=== PATIENT | male | born 1980 | race Caucasian/White ===

== ENCOUNTER 2021-11-22 16:54 | Emergency (ER) | payer OTHER, SELFPAY ==
[2021-11-22 17:05] VITALS: BP 148/84; PULSE 60; RESP 18; TEMP 36.1; O2SAT 98; BMI 27.8
[2021-11-22 17:35] LABS: COVID19 -Nasal RAPID Negative (Negative)
[2021-11-22] MEDS: MECLIZINE HCL 12.5 MG TABLET 25 MG PO (17:41)
--- NOTE | 2021-11-22 17:44 | ED.DIZZY ---
HPI - Dizziness <Yong Egan PA-C - Last Filed: 11/22/21 19:09> General Chief Complaint: Dizziness Stated Complaint: Nausea,Dizziness,Clogged Ears Time Seen by Provider: 11/22/21 17:05 Source: patient Mode of arrival: Ambulatory History of Present Illness HPI Narrative: Patient is a 40-year-old male presenting to the emergency department today for an evaluation dizziness. It patient states that he is experience sensations of ear congestion and a ?whooshing sensation? in his ears for the past month. He states he did begin to experience intermittent episodes of dizziness on Thursday, noting that the dizziness worsened within the last hour. He states that he experienced episodes of nausea with 1 episode of nonbloody nonbilious vomiting today. Patient denies fever, chills, chest pain, cough, shortness of breath, diarrhea, abdominal pain, dysuria, hematuria, diaphoresis, pain in the upper extremities, jaw pain, changes in vision, sore throat, or any other concerning symptoms. No further concerns were voiced at this time. Related Data Allergies Allergy/AdvReac Type Severity Reaction Status Date / Time No Known Drug Allergies Allergy Verified 11/22/21 17:10 Review of Systems <Yong Egan PA-C - Last Filed: 11/22/21 19:09> Constitutional Constitutional: Denies chills, Denies fatigue, Denies fever(s), Denies frequent falls, Denies lethargy and Denies weakness Eyes Eyes: Denies loss of vision ENT Ears, Nose, Mouth, and Throat: Denies change in voice, Reports dizziness, Denies neck pain, Denies sore throat, Denies throat swelling and Reports other (Ear fullness) Cardiovascular Cardiovascular: Denies chest pain, Denies irregular heart rhythm, Denies lightheadedness, Denies palpitations, Denies dyspnea, Denies dyspnea on exertion and Denies orthopnea Respiratory Respiratory: Denies cough, Denies dyspnea, Denies dyspnea on exertion and Denies wheezing Gastrointestinal Gastrointestinal: Denies abdominal pain, Denies change in bowel habits, Denies diarrhea, Denies loose stools, Reports nausea and Reports vomiting Genitourinary Genitourinary: Denies hematuria, Denies flank pain, Denies urinary incontinence and Denies urinary urgency Musculoskeletal Musculoskeletal: Denies back pain, Denies muscle weakness, Denies neck pain, Denies numbness and Denies tingling Integumentary/Breasts Skin/Breast: Denies pruritus, Denies erythema, Denies rash and Denies wounds Neurologic Neurologic: Denies behavioral changes, Denies confusion, Reports dizziness, Denies frequent falls, Denies loss of vision, Denies numbness, Denies tingling and Denies weakness Psychiatric Psychiatric: Denies behavioral changes and Denies confusion Endocrine Endocrine: Denies fatigue and Denies palpitations Allergic/Immunologic Allergic/Immunologic: Denies throat swelling and Denies wheezing Patient History <Yong Egan PA-C - Last Filed: 11/22/21 19:09> Social History Smoking Status: Former smoker Smoking Status: Former smoker alcohol intake frequency: 0-2 drinks per day Substance Use Type: does not use Exam <Yong Egan PA-C - Last Filed: 11/22/21 19:09> Narrative Exam Narrative: GENERAL: 40 year old patient appears stated age. Well-developed patient, in mild distress. HEAD: Atraumatic. Normocephalic. EYES: Pupils equal round and reactive. Extraocular motions intact. No scleral icterus. No injection or drainage. ENT: Nose without bleeding, purulent drainage. Throat without erythema, tonsillar hypertrophy or exudate. Airway patent. Tympanic membranes are nonerythematous bilaterally and are free of swelling. Serous fluid noted behind the tympanic membranes bilaterally. NECK: Trachea midline. Non tender CARDIOVASCULAR: Regular rate and rhythm without murmurs, gallops, or rubs. RESPIRATORY: Clear to auscultation. Breath sounds equal bilaterally. No wheezes, rales, or rhonchi. GASTROINTESTINAL: Abdomen soft, non-tender, nondistended. EXTREMITIES: No edema or joint tenderness. BACK: Nontender without deformity or crepitance. No flank tenderness. NEURO: AOx3. SKIN: No rash or erythema of visible areas Initial Vital Signs Initial Vital Signs: Vital Signs Temperature 97.0 F L 11/22/21 17:05 Pulse Rate 60 11/22/21 17:05 Respiratory Rate 18 11/22/21 17:05 Blood Pressure 148/84 H 11/22/21 17:05 Pulse Oximetry 98 11/22/21 17:05 <Cornell Ham DO - Last Filed: 11/23/21 07:28> Initial Vital Signs Initial Vital Signs: Vital Signs Temperature 97.0 F L 11/22/21 17:05 Pulse Rate 60 11/22/21 17:05 Respiratory Rate 18 11/22/21 17:05 Blood Pressure 148/84 H 11/22/21 17:05 Pulse Oximetry 98 11/22/21 17:05 Course <Yong Egan PA-C - Last Filed: 11/22/21 19:09> Course Course Narrative: EKG ordered. Zofran and meclizine administered. Orders Ordered: Discontinued Medications Meclizine HCl (Meclizine Hcl 12.5 Mg Tablet) 25 mg PO NOW ONE Stop: 11/22/21 17:37 Last Admin: 11/22/21 17:41 Dose: 25 mg Documented by: ABBE Ondansetron HCl (Ondansetron 8 Mg Tablet) 4 mg PO NOW ONE Stop: 11/22/21 17:37 Last Admin: 11/22/21 17:51 Dose: Not Given Documented by: ABBE Ondansetron HCl (Ondansetron 4 Mg Odt) 4 mg PO NOW ONE Stop: 11/22/21 17:46 Last Admin: 11/22/21 17:51 Dose: Not Given Documented by: ABBE Ondansetron HCl (Ondansetron 4 Mg Odt) 4 mg SL NOW ONE Stop: 11/22/21 17:46 Last Admin: 11/22/21 17:46 Dose: 4 mg Documented by: ABBE Vital Signs Vital signs: Vital Signs - 8 hr 11/22/21 17:05 Temperature 97.0 F L Pulse Rate 60 Respiratory Rate 18 Blood Pressure 148/84 H Pulse Oximetry 98 <Cornell Ham DO - Last Filed: 11/23/21 07:28> Orders Ordered: Discontinued Medications Meclizine HCl (Meclizine Hcl 12.5 Mg Tablet) 25 mg PO NOW ONE Stop: 11/22/21 17:37 Last Admin: 11/22/21 17:41 Dose: 25 mg Documented by: ABBE Ondansetron HCl (Ondansetron 8 Mg Tablet) 4 mg PO NOW ONE Stop: 11/22/21 17:37 Last Admin: 11/22/21 17:51 Dose: Not Given Documented by: ABBE Ondansetron HCl (Ondansetron 4 Mg Odt) 4 mg PO NOW ONE Stop: 11/22/21 17:46 Last Admin: 11/22/21 17:51 Dose: Not Given Documented by: ABBE Ondansetron HCl (Ondansetron 4 Mg Odt) 4 mg SL NOW ONE Stop: 11/22/21 17:46 Last Admin: 11/22/21 17:46 Dose: 4 mg Documented by: ABBE Vital Signs Vital signs: Vital Signs - 8 hr 11/22/21 17:05 Temperature 97.0 F L Pulse Rate 60 Respiratory Rate 18 Blood Pressure 148/84 H Pulse Oximetry 98 MDM - Dizziness <Yong Egan PA-C - Last Filed: 11/22/21 19:09> Lab Data Labs: Lab Results 11/22/21 Range/Units 17:01 SARS-CoV-2 (PCR) Negative (Negative) ECG Data Interpretation: Ventricular rate of 59 beats per minute, MN interval of 164 ms, sinus bradycardia but otherwise normal EKG. MDM Narrative Medical decision making narrative: To consider benign paroxysmal positional vertigo versus Meniere's disease verses acute otitis media versus otitis externa versus is cerumen impaction versus serous otitis media versus viral upper respiratory infection at all. Overall physical examination and history are reassuring. Discussed physical exam findings with patient informed him that it does appear he has clear fluid behind the ears which would explain the symptoms he has been experiencing. I advised the patient to take a daily Claritin to help alleviate his symptoms and a Sudafed at night to help to alleviate any congestion. Patient expresses understanding and agrees to plan. Inform the patient that I would be providing him a prescription for meclizine and Zofran. Patient states he like to be discharged home at this time. Strict return precautions were discussed with the patient prior to discharge. <Cornell Ham DO - Last Filed: 11/23/21 07:28> Lab Data Labs: Lab Results 11/22/21 Range/Units 17:01 SARS-CoV-2 (PCR) Negative (Negative) Discharge Plan Departure Patient Disposition: Home Clinical Impression: Acute serous otitis media, Vertigo Instructions: DI for Vertigo Activity Restrictions/Additional Instructions: *You have been diagnosed with acute serous otitis media, vertigo *What to do: *Please continue to take your regular medications as directed. [X] New medication prescriptions sent to your pharmacy: [facility] [ ] New medication written as a paper prescription [ ] No new medications given I recommend taking a daily Claritin to help alleviate the fullness that your experiencing in your years. Additionally, he can take a Sudafed at night to further improve the congestion. I have prescribed you medications to help improve your dizziness and nausea. Do not hesitate to return to the emergency department if you experience worsening dizziness, intractable vomiting, numbness or tingling in the extremities, chest pain, shortness of breath, or any other concerning symptoms. *Please follow up with your primary care provider in 2-3 days, call for an appointment. Let them know you were seen in the Emergency Department and that we ask that you be seen in follow up. We will electronically transmit a record of today's note if your PCP is in our system *If you do not have a primary care provider please contact the [facility] Resource line at [phone]. They will ask some questions about your medical history and help get you set up with a doctor in the community. *Return to Emergency Department if you should have any new, worsening or concerning symptoms, such as fever greater than 101 F, shaking chills, worsening pain, persistent vomiting or other bothersome symptoms. <Cornell Ham, DO - Last Filed: 11/23/21 07:28> [facility] Dr Ham Co-Sign Statement: I was available for consultation during this patient's emergency department visit. This chart is signed by myself for administrative purposes only. I did not have direct contact with this patient during this visit. They were seen independently by the APC.
[2021-11-22] MEDS: ONDANSETRON 4 MG ODT SL (17:46)
== END 2021-11-22 18:00 | disposition home or self-care (01) ==
PROVIDERS: Emergency Provider Physician Assistant
DX: H65.03 Acute serous otitis media, bilateral (principal); R42 Dizziness and giddiness; R11.2 Nausea with vomiting, unspecified; R00.1 Bradycardia, unspecified; Z20.822 Contact with and (suspected) exposure to COVID-19; Z87.891 Personal history of nicotine dependence
CPT/HCPCS: 87635; 93005; 93010; 99283; C9803

== ENCOUNTER 2023-11-01 16:50 | Emergency (ER) | payer OTHER, SELFPAY ==
[2023-11-01] VITALS (12 sets, daily range): BP systolic 142–179; BP diastolic 91–113; PULSE 62–96; RESP 12–27; O2SAT 92–100; BMI 28.5
--- NOTE | 2023-11-01 16:58 | ED.FALL ---
HPI - Fall General Chief Complaint: Trauma Stated Complaint: fell from roof Time Seen by Provider: 11/01/23 16:52 History of Present Illness HPI Narrative: Patient arrives for modified trauma. Brought in by ambulance from home. He was working on his roof and slipped as he was trying to get down. Fell down 10 ft onto his feet and then onto his right side. Denies any loss of consciousness. Denies any head or neck or spine pain. Patient arrives boarded and collared. Spinal precautions continued. Patient was safely log rolled off of the board as there was no no no midline tenderness or step-off of the cervical thoracic or lumbar spine. No skin injury seen. Denies any numbness or tingling or weakness to the arms or legs. No saddle paresthesia. No bowel or bladder incontinence. Related Data Allergies Allergy/AdvReac Type Severity Reaction Status Date / Time No Known Drug Allergies Allergy Verified 11/22/21 17:10 Review of Systems Review of Systems Narrative: GENERAL: negative chills, fatigue, malaise, fever, sweats. HEENT: negative sinus pain, ear pain, sore throat RESPIRATORY: negative dyspnea, cough CARDIOVASCULAR: negative chest pain, palpitations GASTROINTESTINAL: negative nausea, vomiting, abdominal pain : negative dysuria, frequency, hematuria MUSCULOSKELETAL: Positive muscle or bony pain SKIN: negative rash, skin lesions NEUROLOGIC: negative weakness, numbness ROS Unobtainable: All systems reviewed & are unremarkable except as noted in HPI and below Patient History Social History Smoking Status: Former smoker Smoking Status: Former smoker alcohol intake frequency: 0-2 drinks per day Substance Use Type: does not use Exam Narrative Exam Narrative: GENERAL: in no distress, not toxic not dyspneic HEAD: Normocephalic. Nontender face scalp and skull. EYES: Pupils equal round ENT: Mucous membranes moist. NECK: Trachea midline. No midline tenderness or step-off the cervical thoracic or lumbar spine, spinal precautions done. Patient safely log rolled. CARDIOVASCULAR: Regular rate and rhythm RESPIRATORY: Clear to auscultation. Breath sounds equal bilaterally. No wheezes, rales, or rhonchi. GASTROINTESTINAL: Abdomen soft, non-tender EXTREMITIES: No gross deformities. No shortening or rotation of the lower extremities. Examination right upper extremity edema swelling to the right elbow at the olecranon. Holds in hand is warm soft adames-pink strong radial pulse and assisted living assistant and light touch intact to fingers and thumb.. Nontender bilateral feet and heels Able to lift and bend at left hip and knee but does have right groin pain. Painful when attempting to raise the right leg. Pain at the right groin as well. BACK: No flank tenderness. No midline tenderness or step-off of the cervical thoracic or lumbar spine. No skin injury seen. NEURO: AOx4. Clear speech. SKIN: Warm and dry PSYCH: Not anxious, is cooperative Initial Vital Signs Initial Vital Signs: Vital Signs Pulse Rate 68 11/01/23 17:14 Pulse Oximetry 92 11/01/23 17:14 Course Orders Ordered: Discontinued Medications Hydromorphone HCl (Hydromorphone 1 Mg Inj) 1 mg IV NOW ONE Stop: 11/01/23 18:01 Last Admin: 11/01/23 18:05 Dose: 1 mg Documented By: MARIO Sodium Chloride (Normal Saline 0.9%) 500 mls @ 1,000 mls/hr IV BOLUS ONE Stop: 11/01/23 17:21 Last Infusion: 11/01/23 18:02 Dose: Infused Documented By: Admin: 11/01/23 17:26 Dose: 1,000 mls/hr Documented By: CTS Morphine Sulfate (Morphine 4 Mg/Ml Inj) 4 mg IV NOW ONE Stop: 11/01/23 17:05 Last Admin: 11/01/23 17:26 Dose: 4 mg Documented By: CTS Ondansetron HCl (Ondansetron 4 Mg/2 Ml Inj) 4 mg IV NOW ONE Stop: 11/01/23 17:05 Last Admin: 11/01/23 17:26 Dose: 4 mg Documented By: CTS Vital Signs Vital signs: Vital Signs - 8 hr 11/01/23 17:14 11/01/23 17:15 11/01/23 17:17 Pulse Rate 68 66 Respiratory Rate Blood Pressure 179/113 H Pulse Oximetry 92 99 11/01/23 17:17 11/01/23 17:30 11/01/23 17:30 Pulse Rate 64 64 Respiratory Rate 14 22 Blood Pressure 154/93 H Pulse Oximetry 100 100 MDM - Fall Lab Data 11/01/23 17:23 11/01/23 17:23 Labs: Lab Results 11/01/23 11/01/2311/01/23 Range/Units 17:23 17:56 18:33 WBC 11.9 H (4.5-11.0) X10^3/uL RBC 4.71 (4.5-5.9) X10^6/uL Hgb 14.1 (13.5-17.5) g/dL Hct 41.3 (41-53) % MCV 87.7 (80-100) fL MCH 29.8 (26-34) PG MCHC 34.0 (30-36) % RDW 12.8 (11.6-14.8) % Plt Count 195 (150-400) X10^3/uL Neut % (Auto) 84.1 H (50-75) % Lymph % (Auto) 10.3 L (25-40) % [place] % (Auto) 4.7 (3-14) % Eos % (Auto) 0.6 L (2-4) % Baso % (Auto) 0.3 (0-2) % Neut # (Auto) 66950 H (8639-1926) /uL Lymph # (Auto) 1200 (9185-6297) /uL [place] # (Auto) 600 (0-900) /uL Eos # (Auto) 100 (0-450) /uL Baso # (Auto) 0 (0-100) /uL Sodium 134 L (137-145) mmol/L Potassium 3.5 (3.4-5.1) mmol/L Chloride 101 (98-107) mmol/L Carbon Dioxide 24 (22-32) mmol/L BUN 16 (9-20) mg/dL Creatinine 0.96 (0.66-1.25) mg/dL Estimated GFR > 60 (>60) mL/min BUN/Creatinine Ratio 16.7 (6-22) Glucose 93 (70-100) mg/dL Calcium 9.2 (8.4-10.2) mg/dL Total Bilirubin 0.7 (0.2-1.3) mg/dL AST 36 (17-59) IU/L ALT 54 H (<50) IU/L Alkaline Phosphatase 46 (38-126) U/L Total Protein 6.5 (6.3-8.2) g/dL Albumin 4.2 (3.5-5.0) g/dL Globulin 2.3 (1.7-4.1) g/dL Albumin/Globulin Ratio 1.8 (1.0-2.8) Lipase 220 (23-300) U/L Urine Color Yellow Urine Appearance Clear Urine pH 6.5 (4.5-8.0) Ur Specific [place] 1.010 (1.000-1.035) Urine Protein Negative (Negative) Urine Glucose (UA) Negative (Negative) g/dL Urine Ketones Trace H (NEGATIVE) Urine Occult Blood 1+ H (Negative) Urine Nitrate Negative (Negative) Urine Bilirubin Negative (NEGATIVE) Urine Urobilinogen 0.2 (0.2) E.U./dL Ur Leukocyte Esterase Negative (NEGATIVE) Urine RBC 0-1/hpf (0-5/HPF) Urine WBC None seen (0-5/HPF) Ur Squamous Epith Cells None seen (0-5/HPF) Urine Bacteria None seen (None) Ur Culture Indicated? Cult not indicated SARS-CoV-2 (PCR) Negative (Negative) Imaging Data CT scan - head: Radiologist's Impression: [place] [address] CT Scan Report Signed Patient: Wiliam Bae MR#: [id number] : 1980 Acct:[id number] Age/Sex: 42 / M Date of Service: 11/01/23 Loc: ED Accession Number: [id number] Procedure: CT head/brain wo con Ordering Provider: Nba Carrasco MD PROCEDURE: CT HEAD/BRAIN WO CON INDICATIONS: Trauma TECHNIQUE: Noncontrast 4.5 mm thick angled axial sections acquired from the foramen magnum to the vertex, with coronal and sagittal reformats. For radiation dose reduction, the following was used: automated exposure control, adjustment of mA and/or kV according to patient size. COMPARISON: None. FINDINGS: Image quality: Diagnostic CSF spaces: Basal cisterns are patent. Lateral ventricles are symmetric. Volume: Generally maintained. Brain: No intracranial hemorrhage. Noriega-white differentiation is grossly maintained. Craniofacial structures: Paranasal sinuses are clear where visualized. There may be a small left maxillary mucous cyst. No displaced fracture. IMPRESSION: No acute intracranial abnormality. Dictated by: Misha Stone M.D. on 11/01/2023 at 17:21 Approved by: Misha Stone M.D. on 11/01/2023 at 17:22 CT - cervical spine: Radiologist's Impression: [address] [address] [address] Scan Report Signed Patient: Wiliam Bae MR#: [id number] : 1980 Acct:[id number] Age/Sex: 42 / M Date of Service: 11/01/23 Loc: ED Accession Number: [id number] Procedure: CT cervical spine wo con Ordering Provider: Nba Carrasco MD PROCEDURE: CT CERVICAL SPINE WO CON INDICATIONS: Trauma TECHNIQUE: Noncontrast 3 mm thick sections acquired from the skull base to the T4 level. Sagittal and coronal reformats were then constructed. For radiation dose reduction, the following was used: automated exposure control, adjustment of mA and/or kV according to patient size. COMPARISON: None. FINDINGS: Image quality: Diagnostic Bones: There is straightening of normal cervical lordosis. There are minimal degenerative changes, with disc space height loss and possible early osteophytes. No acute vertebral body height loss. No traumatic subluxation. Soft tissues: Chest findings are separately dictated. No pathologic prevertebral soft tissue swelling. IMPRESSION: No acute fracture or traumatic subluxation of the cervical spine. If there is high concern for further derangement, consider MRI evaluation. Dictated by: Misha Stone M.D. on 11/01/2023 at 17:23 Approved by: Misha Stone M.D. on 11/01/2023 at 17:24 Extremity x-ray #1: Radiologist's Impression: [address] [address] XRay Report Signed Patient: Wiliam Bae MR#: [id number] : 1980 Acct:[id number] Age/Sex: 42 / M Date of Service: 11/01/23 Loc: ED Accession Number: [id number] Procedure: XR elbow RT 2V Ordering Provider: Nba Carrasco MD PROCEDURE: XR ELBOW RT 2V INDICATIONS: fall/injury TECHNIQUE: 3 views of the elbow were acquired. COMPARISON: None. FINDINGS: Bones: Mildly displaced fracture of the radial head/neck. Olecranon enthesopathy. Radiocapitellar alignment is maintained. Tiny exostosis or tug lesion from the distal humerus. Soft tissues: Joint effusion. IMPRESSION: Displaced proximal radius fracture. Dictated by: Misha Stone M.D. on 11/01/2023 at 17:20 Approved by: Misha Stone M.D. on 11/01/2023 at 17:21 CT chest abdomen and pelvis: Radiologist's Impression: [address] [address] [address] Scan Report Signed Patient: Wiliam Bae MR#: [id number] : 1980 Acct:[id number] Age/Sex: 42 / M Date of Service: 11/01/23 Loc: ED Accession Number: [id number] Procedure: CT chest abd pel w con Ordering Provider: Nba Carrasco MD PROCEDURE: CT CHEST ABD PEL W CON INDICATIONS: Trauma TECHNIQUE: After the administration of intravenous contrast, 5 mm thick sections acquired from the lung apices to the symphysis. 2.5 mm thick coronal and sagittal reformats were acquired. Additional 7 mm thick coronal maximum intensity projection (MIP) reformats acquired through the lungs. Optional 10-minute delayed imaging may be performed from the kidneys to the bladder. For radiation dose reduction, the following was used: automated exposure control, adjustment of mA and/or kV according to patient size. COMPARISON: None. FINDINGS: Image quality: Diagnostic Lungs and pleura: No hemothorax or pneumothorax. Mild basilar atelectasis and possible mild scarring. No pleural effusions. No pulmonary nodule identified that requires follow-up per Fleischner guidelines. Mediastinum, heart, and esophagus: No mediastinal hematoma. No hemopericardium. Mildly patulous distal esophagus. No pathologic lymph nodes by size criteria. Chest wall and thyroid: No actionable thyroid nodule identified. Chest wall is unremarkable. Liver: Suspected hepatic steatosis. No capsular hematoma or laceration identified. Gallbladder and biliary system: Gallbladder is unremarkable. Nondilated biliary tree. Pancreas: Unremarkable Spleen: No capsular hematoma or laceration Adrenals: Mild thickening. No hematoma Kidneys: No hydronephrosis, mass, or laceration. Vessels and lymph nodes: The main portal vein is patent. No abdominal aortic aneurysm. No pathologic lymph nodes by size criteria. Bowel and peritoneum: No evidence of small bowel obstruction. No hemoperitoneum. The appendix appears nondilated. Body wall: No drainable fluid collection Pelvis: Bladder is unremarkable. The prostate is not well evaluated on CT, overall unremarkable. Bones: Mildly displaced and comminuted fracture of the inferior obturator ring. There is also a nondisplaced fracture of the right pubis at the parasymphyseal region. Mild hematoma in the adjacent musculature. There is also a trace hematoma anterior to the bladder, under the peritoneum. No acute fracture or traumatic subluxation of the thoracolumbar spine. IMPRESSION: Multi part right obturator ring fractures. Adjacent extraperitoneal hematoma around the bladder. If there is 3+ hematuria, consider correlation with CT cystogram. No traumatic injury identified in the chest. No solid organ laceration No fracture or traumatic subluxation of the thoracolumbar spine. Other incidental findings above. Dictated by: Misha Stone M.D. on 11/01/2023 at 17:24 Approved by: Misha Stone M.D. on 11/01/2023 at 17:32 [facility] Narrative Medical decision making narrative: Patient arrives for modified trauma. Brought in by ambulance from home. He was working on his roof and slipped as he was trying to get down. Fell down 10 ft onto his feet and then onto his right side. Denies any loss of consciousness. Denies any head or neck or spine pain. Patient arrives boarded and collared. Spinal precautions continued. Patient was safely log rolled off of the board as there was no no no midline tenderness or step-off of the cervical thoracic or lumbar spine. No skin injury seen. Denies any numbness or tingling or weakness to the arms or legs. No saddle paresthesia. No bowel or bladder incontinence. After history and exam CT head cervical spine chest abdomen pelvis x-ray right elbow CBC CMP [facility] CC: Pelvic pain elbow pain Complicating co-morbidities: None Data collected from: Patient and EMS Medical records reviewed: No recent visit for this complaint Differential considered: Includes but not limited to pelvic fracture hip fracture elbow fracture Exam documented above, pertinent findings include: Tender right elbow. Tender right pelvis Lab Test results independently reviewed as above. Pertinent findings: Hemoglobin 14 hematocrit 41 Imaging studies independently reviewed: CT head cervical spine no acute finding. CT chest abdomen pelvis complex pelvic fracture with hematoma around the bladder. X-ray right elbow shows radial head fracture. EKGs normal sinus rhythm normal EKG rate 65 Consultations: 6:00 p.m.. Spoke with [facility] Dr. Stahl, he will accept patient to the emergency department. Treatments: Morphine Zofran normal saline Re-evaluations: 6:10 p.m.. Updated patient he will be flown to [facility]. He does agree. Pain is controlled. He is awake alert oriented x4. Hemodynamically stable at this time. Reviewed results with them Discussion: Appropriate for transfer for higher level of care and trauma. Patient hemodynamically stable. Pain is controlled. Airway intact. Diagnosis: Complex pelvic fracture/elbow fracture C-collar cleared clinically. CT imaging no acute finding. No midline tenderness or step-off of the cervical spine. Critical Care Time Critical Care Time Attestation: Critical Care Time 35 minutes: Critical care time is separate from other billable procedures. This critical care time includes consultation with family and other consulting doctors, review of records, and interpretation of data from labs, EKGs, imaging, etc. Discharge Plan Departure Patient Disposition: [facility] Clinical Impression: Closed displaced fracture of pelvis Qualifiers: Encounter type: initial encounter Pelvic bone location: unspecified part of pelvis Qualified Code(s): S32.9XXA - Fracture of unspecified parts of lumbosacral spine and pelvis, initial encounter for closed fracture Elbow fracture, right Qualifiers: Encounter type: initial encounter Fracture type: closed Qualified Code(s): S42.401A - Unspecified fracture of lower end of right humerus, initial encounter for closed fracture Referrals: ProviderSarah [Primary Care Provider] -
[2023-11-01] MEDS: SODIUM CHLORIDE 0.9% 500 ML 1000 ML IV (17:26)
[2023-11-01] MEDS: ONDANSETRON 4 MG/2 ML INJ IV (17:26)
[2023-11-01] MEDS: MORPHINE 4 MG/ML INJ IV (17:26)
[2023-11-01 17:39] LABS: Add Manual Diff / Slide Review NO; Basophils Absolute Auto 0 /uL (0-100); Basophils Percent Auto 0.3 % (0-2); Eosinophils Absolute Auto 100 /uL (0-450); Eosinophils Percent Auto 0.6 % (2-4); Hematocrit 41.3 % (41-53); Hemoglobin 14.1 g/dL (13.5-17.5); Lymphocytes Absolute Auto 1200 /uL (1100-4500); Lymphocytes Percent Auto 10.3 % (25-40); Mean Corpuscular Hemoglobin 29.8 PG (26-34); Mean Corpuscular Volume 87.7 fL (80-100); Monocytes Absolute Auto 600 /uL (0-900); Monocytes Percent Auto 4.7 % (3-14); Neutrophils Absolute Auto 10000 /uL (1500-7000); Neutrophils Percent Auto 84.1 % (50-75); Platelet Count 195 X10^3/uL (150-400); Red Blood Cell Count 4.71 X10^6/uL (4.5-5.9); Red Cell Distribution Width 12.8 % (11.6-14.8); White Blood Cell Count 11.9 X10^3/uL (4.5-11.0)
[2023-11-01 17:46] LABS: Alanine Aminotransferase 54 IU/L (<50); Albumin 4.2 g/dL (3.5-5.0); Albumin Globulin Ratio 1.8 (1.0-2.8); Alkaline Phosphatase 46 U/L (38-126); Aspartate Aminotransferase 36 IU/L (17-59); BUN Creatinine Ratio 16.7 (6-22); Bilirubin Total 0.7 mg/dL (0.2-1.3); Blood Urea Nitrogen 16 mg/dL (9-20); Calcium 9.2 mg/dL (8.4-10.2); Carbon Dioxide 24 mmol/L (22-32); Chloride 101 mmol/L (98-107); Estimated Glomerular Filt Rate > 60 mL/min (>60); Globulin 2.3 g/dL (1.7-4.1); Glucose 93 mg/dL (70-100); HEMOLYSIS 19 (0-50); Lipase 220 U/L (23-300); Potassium 3.5 mmol/L (3.4-5.1); Sodium 134 mmol/L (137-145); Total Protein 6.5 g/dL (6.3-8.2)
[2023-11-01] MEDS: HYDROMORPHONE 1 MG INJ IV (18:05)
[2023-11-01 18:42] LABS: COVID19 -Nasal RAPID Negative (Negative)
[2023-11-01 18:42] LABS: Appearance Urine UA CLEAR; Bilirubin Urine UA NEGATIVE (NEGATIVE); Color Urine UA YELLOW; Glucose Urine UA NEGATIVE (Negative); Ketones Urine UA TRACE (NEGATIVE); Leukocyte Esterase Urine UA NEGATIVE (NEGATIVE); Nitrite Urine UA NEGATIVE (Negative); Occult Blood Urine UA 1+ (Negative); Protein Urine UA NEGATIVE (Negative); Urobilinogen Urine UA 0.2 E.U./dL (0.2); pH Urine UA 6.5 (4.5-8.0)
[2023-11-01 19:03] LABS: RBC Urine 0-1/HPF (0-5/HPF); WBC Urine None Seen (0-5/HPF)
[2023-11-01 19:04] LABS: Bacteria Urine None Seen; Culture Indicated Urine Cult Not Indicated; Squamous Epithelial Cell Urine None Seen (0-5/HPF)
--- NOTE | 2023-11-01 19:08 | PC.NURSE ---
[employer] insurance obtained and receipt placed in pt chart, pt belongings, in [employer] packet, and copy given to .
== END 2023-11-01 19:08 | disposition short-term general hospital (02) ==
PROVIDERS: Emergency Provider Emergency Medicine
DX: S32.9XXA Fracture of unspecified parts of lumbosacral spine and pelvis, initial encounter for closed fracture (principal); S42.401A Unspecified fracture of lower end of right humerus, initial encounter for closed fracture; S19.9XXA Unspecified injury of neck, initial encounter; S09.90XA Unspecified injury of head, initial encounter; S29.9XXA Unspecified injury of thorax, initial encounter; W11.XXXA Fall on and from ladder, initial encounter; Z20.822 Contact with and (suspected) exposure to COVID-19
CPT/HCPCS: 36415; 70450; 71260; 72125; 73070; 74177; 80053; 81001; 83690; 85025; 87635; 93005; 96361; 96374; 96375; 99285; 99291; 99292; C9803; G0390; J1170; J2270; J2405

== ENCOUNTER → 2024-10-19 10:23 | Outpatient (CLI) | payer OTHER, SELFPAY ==
--- NOTE | 2024-10-19 10:27 | DI.MRI.S_ITS ---
PROCEDURE: MR ELBOW RT WO CON INDICATIONS: RIGHT ELBOW PAIN / LOOSE BODY TECHNIQUE: Noncontrast coronal proton density fast spin echo and T2 fast spin echo with fat saturation, axial and sagittal T1 spin echo and T2 fast spin echo with fat saturation through the elbow. COMPARISON: [facility] [place], CR, XR ELBOW 1 OR 2 VIEWS RIGHT, 10/17/2024, 9:10. FINDINGS: Image quality: Excellent. Lateral structures: Moderate tendinosis of the common extensor tendon origin, without tear. Thickening of the radial collateral ligament, representing prior sprain. The lateral ulnar collateral ligament is unremarkable. Medial structures: The ulnar collateral ligament appears intact. The overlying common flexor tendon appears normal. The ulnar nerve appears normal in size and signal within the cubital tunnel. Anterior structures: The biceps and brachialis tendons both appear intact as they insert onto the proximal radius and ulna, respectively. No bicipitoradial bursal fluid. The median and radial neurovascular bundles appear normal; no focal muscle atrophy to suggest nerve impingement. Posterior structures: The conjoint triceps tendon from the long and lateral heads appears intact. The medial head of the triceps tendon also appears normal, with direct muscle insertion onto the olecranon. Trace olecranon bursitis. Bone and cartilage: Chronic deformity of the radial head with mild articular surface incongruity, likely secondary to healed fracture. Moderate degenerative changes of the radiohumeral articulation with moderate subchondral marrow edema in the capitellum, and mild subchondral cystic changes and marrow edema in the radial head. High-grade chondral loss in the capitellum and the radial head. The ulna humeral joint is unremarkable. No acute fracture. Small elbow effusion. No intra-articular body. IMPRESSION: 1. Healed fracture of the radial head with mild articular surface incongruity. Moderate degenerative change of the radial humeral joint with subchondral cystic changes and marrow edema. 2. Moderate tendinosis of the common extensor tendon origin, without tear. 3. Prior sprain of the radial collateral ligament. 4. Small elbow effusion. No intra-articular body. 5. Trace olecranon bursitis. Dictated by: Mellissa Abernathy M.D. on 10/19/2024 at 14:46 Approved by: Mellissa Abernathy M.D. on 10/19/2024 at 14:56
== END ==
PROVIDERS: Referring Provider Orthopaedic Surgery; Visit Provider Orthopaedic Surgery
DX: S52.121S Displaced fracture of head of right radius, sequela (principal); S53.431A Radial collateral ligament sprain of right elbow, initial encounter; M25.521 Pain in right elbow; M25.421 Effusion, right elbow
CPT/HCPCS: 73221